=== PATIENT | male | born 1935 | race Caucasian/White ===

== ENCOUNTER 2016-11-13 22:21 | Emergency (ER) | payer OTHER ==
[~2016-11-13] VITALS: Ht 170.2 cm; Wt 77.7 kg
[2016-11-13 23:37] LABS: EOSINOPHIL COUNT 0.4 K/uL (0-0.3); HEMATOCRIT 41.3 % (38.0-50.0); IMMATURE GRANULOCYTE (%) 0.3 % (0.0-0.7); INSTRUMENT ABS NEUTROPHIL CT 3.6 K/uL; LYMPHOCYTE COUNT 2.3 K/uL (1.0-2.8); MCH 29.4 PG (29.0-34.0); MCHC 32.2 G/DL (30.0-36.0); MCV 91.2 FL (86-99); MEAN PLAT.VOLUME 9.3 uM^3 (9.0-12.4); MONOCYTE (%) 10.4 % (3-12); MONOCYTE COUNT 0.7 K/uL (0-0.8); NEUTROPHIL (%) 50.7 % (45-76); NEUTROPHIL COUNT 3.6 K/uL (1.8-6.4); PLATELET COUNT 210 K/uL (156-360); RBC DIS.WIDTH-CV 13.2 % (11.8-14.6); RBC DIS.WIDTH-SD 44.4 % (39-53); RED BLOOD COUNT 4.53 M/uL (4.00-5.50)
[2016-11-13 23:48] LABS: CHLORIDE 107 mEq/L (99-109); POTASSIUM 4.3 mEq/L (3.7-5.4); SODIUM 142 mEq/L (136-147)
[2016-11-13 23:50] LABS: GLUCOSE 94 mg/dL (70-99)
[2016-11-13 23:51] LABS: ANION GAP 9 MEQ/L (2-14)
[2016-11-13 23:53] LABS: SERUM ETHYL ALCOHOL < 10 mg/dL
[2016-11-13 23:54] LABS: GFR ESTIMATE (CALCULATED) > 59 mL/min/
[2016-11-13 23:55] LABS: UREA NITROGEN (BUN) 24 mg/dL (9-23)
[2016-11-14 01:01] VITALS: BP 129/79
== END 2016-11-14 01:03 | disposition home or self-care (01) ==
LOC: EME 22:21
PROVIDERS: Emergency Medicine
DX: F43.21 Adjustment disorder with depressed mood (principal); F03.90 Unspecified dementia, unspecified severity, without behavioral disturbance, psychotic disturbance, mood disturbance, and anxiety
CPT/HCPCS: 80048; 85025; 90839; 99281; 99284; G0480

== ENCOUNTER 2017-02-02 15:51 | Emergency (ER) | payer OTHER ==
[~2017-02-02] VITALS: Ht 172.7 cm; Wt 81.0 kg
[2017-02-02 16:25] LABS: HEMATOCRIT 41.8 % (38.0-50.0); MCH 30.3 PG (29.0-34.0); MCHC 33.7 G/DL (30.0-36.0); MCV 89.7 FL (86-99); MEAN PLAT.VOLUME 10.1 uM^3 (9.0-12.4); PLATELET COUNT 177 K/uL (156-360); RBC DIS.WIDTH-CV 13.2 % (11.8-14.6); RBC DIS.WIDTH-SD 43.8 % (39-53); RED BLOOD COUNT 4.66 M/uL (4.00-5.50)
[2017-02-02 16:35] LABS: CHLORIDE 107 mEq/L (99-109); POTASSIUM 3.6 mEq/L (3.7-5.4); SODIUM 141 mEq/L (136-147)
[2017-02-02 16:38] LABS: GLUCOSE 91 mg/dL (70-99)
[2017-02-02 16:39] LABS: ANION GAP 11 MEQ/L (2-14)
[2017-02-02 16:41] LABS: ALKALINE PHOSPHATASE 58 IU/L (3-129); GFR ESTIMATE (CALCULATED) > 59 mL/min/ (58.99-99999); SERUM ETHYL ALCOHOL < 10 mg/dL
[2017-02-02 16:42] LABS: UREA NITROGEN (BUN) 19 mg/dL (9-23)
[2017-02-02 16:46] LABS: ADD MIUA? YES; BILIRUBIN NEGATIVE; BLOOD SMALL; COLOR AMBER ((YELLOW)); GLUCOSE (STRIP) NEGATIVE; KETONES NEGATIVE; LEUKOCYTES LARGE; NITRITE NEGATIVE; PROTEIN (STRIP) 30; SPECIFIC GRAVITY 1.017 (1.000-1.030); UROBILINOGEN 0.2 MG/DL (0.2-1.0)
[2017-02-02 16:57] LABS: AMPHETAMINE NEGATIVE (500 ng/mL); BARBITURATES NEGATIVE (200 ng/mL); BENZODIAZEPINES NEGATIVE (150 ng/mL); COCAINE NEGATIVE (150 ng/mL); INTERNAL CONTROLS VALID? YES; METHADONE NEGATIVE (200 ng/mL); METHAMPHETAMINE NEGATIVE (500 ng/mL); OPIATES (MORPHINE) NEGATIVE (100 ng/mL); OXYCODONE NEGATIVE (100 ng/mL); PHENCYCLIDINE NEGATIVE (25 ng/mL); PROPOXYPHENE NEGATIVE (300 ng/mL); THC CANNABINOIDS NEGATIVE (50 ng/mL); TRICYCLIC ANTIDEPRESSANTS NEGATIVE (300 ng/mL)
[2017-02-02 17:20] LABS: RED BLOOD CELLS 0-5 /HPF (0-5); WHITE BLOOD CELLS TNTC /HPF (0-5)
[2017-02-02 17:21] LABS: EPITHELIAL CELLS NONE SEEN /HPF; WHITE BLOOD CELLS CLUMP MOD /HPF (0-5)
[2017-02-02 17:22] LABS: BACTERIA 3+ /HPF
[2017-02-02 17:23] LABS: MUCUS TRACE /LPF
[2017-02-02] MEDS ORDERED: BACTRIM,SEPT1 TABLET PO (20:05)
[2017-02-02 21:25] VITALS: BP 141/96
== END 2017-02-02 21:26 | disposition home or self-care (01) ==
LOC: EME 15:51
PROVIDERS: Emergency Medicine
DX: N39.0 Urinary tract infection, site not specified (principal); F43.21 Adjustment disorder with depressed mood; F03.90 Unspecified dementia, unspecified severity, without behavioral disturbance, psychotic disturbance, mood disturbance, and anxiety; Z04.6 Encounter for general psychiatric examination, requested by authority
CPT/HCPCS: 80053; 81003; 85027; 90837; 99281; 99283; G0480

== ENCOUNTER 2017-02-04 13:44 | Inpatient (IN) | payer OTHER ==
[~2017-02-04] VITALS: Ht 162.6 cm; Wt 67.9 kg
[~2017-02-04 13:44] MED LIST: BACTRIM,SEPT1 TABLET PO
[2017-02-04 14:58] LABS: HEMATOCRIT 42.2 % (38.0-50.0); HEMOGLOBIN 14.1 G/DL (12.5-16.6); MCH 30.1 PG (29.0-34.0); MCHC 33.4 G/DL (30.0-36.0); MCV 90.2 FL (86-99); PLATELET COUNT 177 K/uL (156-360); RBC DIS.WIDTH-CV 13.4 % (11.8-14.6); RBC DIS.WIDTH-SD 44.2 % (39-53); RED BLOOD COUNT 4.68 M/uL (4.00-5.50); WHITE BLOOD COUNT 5.8 K/uL (4.1-10.2)
[2017-02-04 15:18] LABS: TROP-I INTERPRETATION NEGATIVE; TROPONIN-I < 0.01 ng/mL (0.0-0.30)
[2017-02-04 15:27] LABS: CHLORIDE 106 MEQ/L (99-109); POTASSIUM 3.6 MEQ/L (3.7-5.4); SODIUM 141 MEQ/L (136-147)
[2017-02-04 15:32] LABS: GFR ESTIMATE (CALCULATED) > 59 mL/min/ (58.99-99999); GLUCOSE 105 mg/dL (70-99); UREA NITROGEN (BUN) 16 mg/dL (9-23)
[2017-02-04 18:10] LABS: FOLIC ACID (FOLATE) > 22.0 NG/ML (5.0-22.0)
[2017-02-04 19:30] VITALS: BP 84/48
[2017-02-04 23:53] VITALS: BP 97/54
[2017-02-05 07:57] VITALS: BP 98/62
[2017-02-05 12:25] LABS: APPEARANCE CLOUDY ((CLEAR)); BILIRUBIN NEGATIVE; BLOOD MODERATE; COLOR AMBER ((YELLOW)); GLUCOSE (STRIP) NEGATIVE; KETONES NEGATIVE; LEUKOCYTES LARGE; NITRITE POSITIVE; PROTEIN (STRIP) NEGATIVE; SPECIFIC GRAVITY 1.018 (1.000-1.030); UROBILINOGEN 0.2 MG/DL (0.2-1.0)
[2017-02-05 12:38] LABS: BACTERIA 2+ /HPF; EPITHELIAL CELLS NONE SEEN /HPF; HYALINE CASTS 0-5 /LPF; MUCUS 4+ /LPF; UCUL ADDED? YES; WHITE BLOOD CELLS TNTC /HPF (0-5)
[2017-02-05 16:04] VITALS: BP 101/63
[2017-02-05 23:54] VITALS: BP 97/55
[2017-02-06 05:59] LABS: BASOPHIL (%) 0.6 % (0-1); EOSINOPHIL (%) 4.4 % (0-5); EOSINOPHIL COUNT 0.2 K/uL (0-0.3); HEMATOCRIT 42.5 % (38.0-50.0); HEMOGLOBIN 13.6 G/DL (12.5-16.6); IMMATURE GRANULOCYTE (%) 0.2 % (0.0-0.7); LYMPHOCYTE (%) 41.5 % (15-42); MCH 29.4 PG (29.0-34.0); MONOCYTE (%) 8.7 % (3-12); MONOCYTE COUNT 0.4 K/uL (0-0.8); NEUTROPHIL (%) 44.6 % (45-76); NEUTROPHIL COUNT 2.2 K/uL (1.8-6.4); PLATELET COUNT 163 K/uL (156-360); RBC DIS.WIDTH-CV 13.3 % (11.8-14.6); RBC DIS.WIDTH-SD 45.1 % (39-53); RED BLOOD COUNT 4.62 M/uL (4.00-5.50); WHITE BLOOD COUNT 4.8 K/uL (4.1-10.2)
[2017-02-06 06:29] LABS: CHLORIDE 106 MEQ/L (99-109); GFR ESTIMATE (CALCULATED) > 59 mL/min/ (58.99-99999); GLUCOSE 92 mg/dL (70-99); POTASSIUM 4.2 MEQ/L (3.7-5.4); SODIUM 141 MEQ/L (136-147); UREA NITROGEN (BUN) 16 mg/dL (9-23)
[2017-02-06 07:32] VITALS: BP 111/65
[2017-02-06 15:59] VITALS: BP 123/72
[2017-02-07] VITALS: BP 131/76
[2017-02-07 07:32] VITALS: BP 130/81
[2017-02-07 15:50] VITALS: BP 137/70
[2017-02-07] MEDS ORDERED: CELEXA20 MG PO (18:22)
[2017-02-08 01:02] VITALS: BP 123/68
[2017-02-08 07:47] VITALS: BP 105/58
[2017-02-08 16:13] VITALS: BP 110/61
[2017-02-09 00:04] VITALS: BP 128/69
[2017-02-09 08:08] VITALS: BP 132/77; BP 78/58
[2017-02-09] MEDS ORDERED: ARICEPT5 MG PO (14:23)
[2017-02-09] MEDS ORDERED: VITAMIN B-121000 MC3 PO (14:24)
[2017-02-09 16:31] VITALS: BP 136/80
[2017-02-10] VITALS: BP 157/77
[2017-02-10 06:39] LABS: HEMATOCRIT 47.5 % (38.0-50.0); HEMOGLOBIN 15.1 G/DL (12.5-16.6); MCH 29.2 PG (29.0-34.0); MCHC 31.8 G/DL (30.0-36.0); MCV 91.9 FL (86-99); PLATELET COUNT 194 K/uL (156-360); RBC DIS.WIDTH-CV 13.4 % (11.8-14.6); RBC DIS.WIDTH-SD 45.8 % (39-53); RED BLOOD COUNT 5.17 M/uL (4.00-5.50); WHITE BLOOD COUNT 5.9 K/uL (4.1-10.2)
[2017-02-10 07:10] LABS: CHLORIDE 102 MEQ/L (99-109); CREATININE 0.8 MG/DL (0.6-1.3); GFR ESTIMATE (CALCULATED) > 59 mL/min/ (58.99-99999); GLUCOSE 86 mg/dL (70-99); POTASSIUM 4.3 MEQ/L (3.7-5.4); SODIUM 138 MEQ/L (136-147); UREA NITROGEN (BUN) 14 mg/dL (9-23)
[2017-02-10 07:44] VITALS: BP 107/63
[2017-02-10 16:36] VITALS: BP 101/61
== END 2017-02-10 18:12 | disposition home or self-care (01) | DRG 948 ==
LOC: EME 13:44 → 5SOUTH 16:28 → EDOF 16:28 → ENRESERV 16:29 → 5SOUTH 19:17
PROVIDERS: Emergency Medicine; Hospitalist; Internal Medicine
DX: R41.82 Altered mental status, unspecified (principal); F03.91 Unspecified dementia, unspecified severity, with behavioral disturbance; F01.51 Vascular dementia, unspecified severity, with behavioral disturbance; F05 Delirium due to known physiological condition; F23 Brief psychotic disorder; Z60.2 Problems related to living alone
CPT/HCPCS: 70450; 71010; 80048; 80053; 81003; 82607; 82746; 83605; 84484; 85025; 85027; 87086; 90837; 90839; 99202; 99281; 99283; 99285; G0480; J0696; J1644